=== PATIENT | male | born 1960 | race Caucasian/White ===

== ENCOUNTER 2025-06-22 12:05 | Emergency (ER) | payer OTHER, MEDICAID, SELFPAY ==
[2025-06-22 12:14] VITALS: BP 123/67; PULSE 82; RESP 16; TEMP 36.7; O2SAT 100; BMI 23.1
--- NOTE | 2025-06-22 12:20 | DI.RAD.S_ITS ---
PROCEDURE: XR KNEE RT 3V INDICATIONS: right knee pain TECHNIQUE: 3 views of the knee were acquired. COMPARISON: None. FINDINGS: Bones: No fractures or dislocations. Moderate to severe medial compartment joint space loss, articular surface flattening, sclerosis, and moderate spur formation. Mild patellofemoral compartment joint space loss with moderate spur formation. Chondrocalcinosis in the patellofemoral and in the lateral compartments. No suspicious bony lesions. Soft tissues: Moderate-sized joint effusion. No suspicious soft tissue calcifications. Moderate peripheral vascular calcification. IMPRESSION: Moderate-sized knee joint effusion. No visible fractures. Internal derangement cannot be excluded. Dictated by: Miriam Sher M.D. on 06/22/2025 at 13:21 Approved by: Miriam Sher M.D. on 06/22/2025 at 13:23
--- NOTE | 2025-06-22 12:30 | ED_ITS ---
HPI - Extremity Injury (Lower) <Anuradha Antoine PA-C - Last Filed: 06/22/25 14:28> General Chief Complaint: Extremity Injury, Lower Stated Complaint: Right knee pain x 2 days Time Seen by Provider: 06/22/25 12:19 Source: patient Mode of arrival: Ambulatory History of Present Illness HPI Narrative: Mr. Fay is a very pleasant 64-year-old male with a past medical history of chronic right shoulder and low back pain on tramadol who presents to the emergency department with his for right knee pain x2 days. Patient states that over the last few days he was working in the garden, doing a lot of work on his bent knees, when he woke up the next morning with swelling and pain of the right knee. States that he has had x-rays many years ago which revealed arthritis in the knee. He now is having pain with flexion of the knee and notes swelling behind the knee and on the front of the knee. No redness, fevers or flu-like symptoms. He is still ambulatory but with discomfort. He takes tramadol for his chronic pain but this is not helping, he also took 3 Advil without relief in his symptoms. Related Data Previous Rx's ?Medication ?Instructions ?Recorded hydrocodone 5 mg-acetaminophen 325 1 tab PO Q4-6H PRN pain #10 tabs 06/22/25 mg tablet prednisone 20 mg tablet 40 mg (2 x 20 mg) PO DAILY 4 days 06/22/25 #8 tabs Allergies Allergy/AdvReac Type Severity Reaction Status Date / Time Penicillins Allergy unknown Verified 06/22/25 12:14 Review of Systems <Anuradha Antoine PA-C - Last Filed: 06/22/25 14:28> Review of Systems ROS Unobtainable: All systems reviewed & are unremarkable except as noted in HPI and below Patient History <Anuradha Antoine PA-C - Last Filed: 06/22/25 14:28> Social History Smoking Status: Never smoker Smoking Status: Never smoker Exam <Anuradha Antoine PA-C - Last Filed: 06/22/25 14:28> Narrative Exam Narrative: GENERAL: 64 year old patient appears stated age. Well-developed patient, in no acute distress. HEAD: Atraumatic. Normocephalic. EYES: No scleral icterus. No injection or drainage. NECK: Trachea midline. Cervical ROM intact. CARDIOVASCULAR: Regular rate RESPIRATORY: ?Nonlabored respirations. ?Speaking in clear, full sentences. EXTREMITIES: Edema of right knee with palpable swelling in the right popliteal fossa. No erythema or skin changes. Patient has full extension, flexion limited to about 90? secondary to edema. No edema of the thigh or lower legs, 2+ DP and PT pulse on the right lower extremity. Sensation intact to light touch in the lower extremity. NEURO: AOx3. ?Clear speech. ? SKIN: No rash or erythema of visible areas Initial Vital Signs Initial Vital Signs: Vital Signs Temperature 98.0 F 06/22/25 12:14 Pulse Rate 82 06/22/25 12:14 Respiratory Rate 16 06/22/25 12:14 Blood Pressure 123/67 06/22/25 12:14 Pulse Oximetry 100 06/22/25 12:14 Oxygen Delivery Method Room Air 06/22/25 12:14 <Vin Camacho MD - Last Filed: 06/22/25 19:53> Initial Vital Signs Initial Vital Signs: Vital Signs Temperature 98.0 F 06/22/25 12:14 Pulse Rate 82 06/22/25 12:14 Respiratory Rate 16 06/22/25 12:14 Blood Pressure 123/67 06/22/25 12:14 Pulse Oximetry 100 06/22/25 12:14 Oxygen Delivery Method Room Air 06/22/25 12:14 Course <Anuradha Antoine PA-C - Last Filed: 06/22/25 14:28> Orders Ordered: ED Orders 06/22/25 12:20 XR knee RT 3V Stat 06/22/25 13:44 Consult to [facility] Stat Discontinued Medications Hydrocodone Bitart/Acetaminophen (Hydrocodone/Acet 5/325 Tablet) 1 tab PO NOW ONE Stop: 06/22/25 12:40 Last Admin: 06/22/25 13:05 Dose: 1 tab Documented By: MURTAZA Prednisone (Prednisone 20 Mg Tablet) 40 mg PO NOW ONE Stop: 06/22/25 12:40 Last Admin: 06/22/25 13:05 Dose: 40 mg Documented By: MURTAZA Vital Signs Vital signs: Vital Signs - 8 hr 06/22/25 12:14 06/22/25 14:02 Temperature 98.0 F Pulse Rate 82 80 Respiratory Rate 16 16 Blood Pressure 123/67 121/66 Pulse Oximetry 100 99 Oxygen Delivery Method Room Air Room Air <Vin Camacho MD - Last Filed: 06/22/25 19:53> Orders Ordered: ED Orders 06/22/25 12:20 XR knee RT 3V Stat 06/22/25 13:44 Consult to [facility] Stat Discontinued Medications Hydrocodone Bitart/Acetaminophen (Hydrocodone/Acet 5/325 Tablet) 1 tab PO NOW ONE Stop: 06/22/25 12:40 Last Admin: 06/22/25 13:05 Dose: 1 tab Documented By: MURTAZA Prednisone (Prednisone 20 Mg Tablet) 40 mg PO NOW ONE Stop: 06/22/25 12:40 Last Admin: 06/22/25 13:05 Dose: 40 mg Documented By: MURTAZA Vital Signs Vital signs: Vital Signs - 8 hr 06/22/25 12:14 06/22/25 14:02 Temperature 98.0 F Pulse Rate 82 80 Respiratory Rate 16 16 Blood Pressure 123/67 121/66 Pulse Oximetry 100 99 Oxygen Delivery Method Room Air Room Air MDM - Extremity Injury (Lower) <Anuradha Antoine PA-C - Last Filed: 06/22/25 14:28> Medical Records Medical records narrative: None available for review Imaging Data Right Knee X-Ray: Radiologist's Impression: PROCEDURE: XR KNEE RT 3V INDICATIONS: right knee pain TECHNIQUE: 3 views of the knee were acquired. COMPARISON: None. FINDINGS: Bones: No fractures or dislocations. Moderate to severe medial compartment joint space loss, articular surface flattening, sclerosis, and moderate spur formation. Mild patellofemoral compartment joint space loss with moderate spur formation. Chondrocalcinosis in the patellofemoral and in the lateral compartments. No suspicious bony lesions. Soft tissues: Moderate-sized joint effusion. No suspicious soft tissue calcifications. Moderate peripheral vascular calcification. IMPRESSION: Moderate-sized knee joint effusion. No visible fractures. Internal derangement cannot be excluded. Dictated by: Miriam Sher M.D. on 06/22/2025 at 13:21 Approved by: Miriam Sher M.D. on 06/22/2025 at 13:23 [facility] Narrative Medical decision making narrative: 64-year-old male with a past medical history of chronic right shoulder and low back pain on tramadol who presents to the emergency department with his for right knee pain x2 days. Differential diagnosis includes but is not limited to Dobson cyst, knee effusion, osteoarthritis, sprain, strain, fracture, dislocation, etc. On exam patient is in no acute distress, nontoxic-appearing, all vital signs within normal limits. He has edema localized to the right knee and also palpable swelling in the right popliteal fossa clinically consistent with a Dobson's cyst. No direct trauma to the knee however symptoms did result after doing a lot of garden work and being on his knees for prolonged period of time. We will obtain baseline x-ray right knee, treat pain and inflammation with prednisone and hydrocodone, and plan to apply Aki wrap and crutches. No erythema, fever, flu-like symptoms or pain out of proportion to exam concerning for septic joint. Patient's pain improved after ED treatment. Aki wrap was applied and crutches were provided for weight-bearing as tolerated. X-ray reveals No fractures or dislocations. Moderate to severe medial compartment joint space loss, articular surface flattening, sclerosis, and moderate spur formation. Mild patellofemoral compartment joint space loss with moderate spur formation. Chondrocalcinosis in the patellofemoral and in the lateral compartments. No suspicious bony lesions. Moderate-sized joint effusion. No suspicious soft tissue calcifications. Moderate peripheral vascular calcification. Printed and discussed imaging results with the patient his . I did recommend that he follows up with Orthopedics for further management of his effusion and severe arthritis. Discussed supportive care including rest, ice, compression, elevation, weight-bearing as tolerated, ibuprofen and acetaminophen and prescribed hydrocodone as needed for breakthrough pain. Does have prescription for tramadol for his chronic pain however this is not been helping the knee. Discussed risks of narcotics and discouraged using tramadol and hydrocodone together. Discussed strict ER return precautions for signs symptoms of infection or any other concerns. Patient verbalized understanding of all information agreeable with the plan. He is ambulatorywith the assistance of crutches and stable for discharge home. Discharge Plan Departure Patient Disposition: Home Clinical Impression: Effusion of right knee, Chondrocalcinosis Degenerative arthritis of right knee Qualifiers: Osteoarthritis type: unspecified Qualified Code(s): M17.11 - Unilateral primary osteoarthritis, right knee Instructions: DI for Knee Pain Activity Restrictions/Additional Instructions: Dear Mr. Fay, Thank you for coming to the emergency department. Today you were evaluated for right knee pain. Your x-ray did reveal severe arthritis in addition to a joint effusion. Please use ibuprofen and Tylenol for pain in addition to hydrocodone for severe breakthrough pain, incomplete the course of steroids to help with the inflammation. Please call and schedule an appointment with [facility] for further management. Please return to the emergency department if you develop fevers, redness of the leg, flu-like symptoms or any other concerns. Please use RICE therapy for your pain in addition to ibuprofen/acetaminophen. Rest the painful area. Ice the area of pain/swelling for at least 15 minutes, 4x a day. Compress the area of swelling using a brace, wrap, or splint if applied. Elevate the painful or swollen extremity by supporting it above the level of the heart with pillows when sitting or laying. Please do not combine your hydrocodone and tramadol. You have been prescribed a short course of narcotic medications. These are potentially dangerous and addictive medications that should be used carefully. While on these medications you cannot drive or operate heavy machinery. Additionally, you cannot sign legal documents or perform any duties such as this. 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 Please understand that we cannot provide further refills of narcotics or controlled substances through the ED and your pain management will need to be through your Primary Care Provider Please follow up with your primary care doctor within the next 2-3 days for ER follow-up. (If you do not have a PCP you can call [phone]. ?to schedule an appointment with an [facility] Primary Care Provider) IF YOU DEVELOP ANY NEW OR WORSENING SYMPTOMS, RETURN TO THE ER! Please read the attached instructions, they highlight more specific treatments and interventions for you at home. Thank you for letting me participate in your care, Anuradha Antoine PA-C Prescriptions: New prednisone 20 mg tablet 40 mg PO DAILY 4 Days Qty: 8 0RF hydrocodone-acetaminophen 5-325 mg tablet 1 tab PO Q4-6H PRN (Reason: pain) Qty: 10 0RF Referrals: Cyrus Parker MD [Physician, Orthopedic Surgery] Referral Note: Right knee arthritis, effusion Stand Alone Forms: Patient Portal/API ED Sign-out <Vin Camacho MD - Last Filed: 06/22/25 19:53> Cosign ED Attending Cosignature Attestation: I was immediately available in the department for consultation. This documentation has been reviewed and I agree with assessment and plan. Supervised by Vin Camacho MD
--- NOTE | 2025-06-22 12:30 | PC.NURSE ---
Pt denies traumatic injury. Has been working in the yard and kneeling more over the past few days. Also feels/has lump behind right knee along with swelling and warmth.
[2025-06-22 14:02] VITALS: BP 121/66; PULSE 80; RESP 16; O2SAT 99
== END 2025-06-22 14:00 | disposition home or self-care (01) ==
PROVIDERS: Emergency Provider Physician Assistant
DX: M25.461 Effusion, right knee (principal); M11.261 Other chondrocalcinosis, right knee; M17.11 Unilateral primary osteoarthritis, right knee
CPT/HCPCS: 73562; 99283; 99284